=== PATIENT | male | born 1970 | race Caucasian/White ===

== ENCOUNTER 2023-01-01 18:30 | Emergency (ER) | payer OTHER ==
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
--- NOTE | 2023-01-01 22:08 | XR ---
EXAMINATION TYPE: XR cervical spine limited DATE OF EXAM: 01/01/2023 9:10 PM INDICATION: Patient age:Male; 52 years old; Reason for study: neck pain; [facility]. COMPARISON: None. TECHNIQUE: 3 views of the skull. FINDINGS: No evidence to suggest radiopaque foreign body. Soft tissues and osseous structures are within norm al limits. Moderate degenerative changes of the cervical spine. These changes are most pronounced wi thin the lower cervical spine. IMPRESSION: Moderate osteoarthritis of the cervical spine.
[2023-01-01] MEDS ORDERED: KETOROLAC 15 MG/ML 1 ML VIAL IVP STA (23:06)
[2023-01-01] MEDS ORDERED: LIDOCAINE 5% PATCH TOPICAL STA (23:07)
[2023-01-01] MEDS ORDERED: KETOROLAC 15 MG/ML 1 ML VIAL IM STA (23:24)
--- NOTE | 2023-01-01 23:43 | CT ---
EXAM: CT Cervical Spine Without Intravenous Contrast CLINICAL HISTORY: ITS.REASON CT Reason: numbness in extremities TECHNIQUE: Axial computed tomography images of the cervical spine without intravenous contrast. CTDI is 6 mGy and DLP is 491 mGy-cm. This CT exam was performed using one or more of the following dose reduction techniques: automated exposure control, adjustment of the mA and/or kV according to patient size, and/or use of iterative reconstruction technique. COMPARISON: C-spine radiographs 01/01/23 FINDINGS: Vertebrae: Mild reversal of the normal cervical lordosis. No acute fracture or traumatic malalignment. Discs/spinal canal/neural foramina: Disc height loss, osteophytes, uncovertebral spurs, and facet arthropathy. Multilevel foraminal narrowing. Spinal stenosis is moderate at C5-C6 and mild at C6-C7. Soft tissues: No significant abnormality. IMPRESSION: 1. No acute fracture or traumatic malalignment. 2. Degenerative changes worst at C5-C6 where there is bilateral neural foraminal stenosis and at least moderate spinal stenosis. MRI may be considered for further characterization. EXAM: CT Thoracic Spine Without Intravenous Contrast CLINICAL HISTORY: ITS.REASON CT Reason: numbness in extremities TECHNIQUE: Axial computed tomography images of the thoracic spine without intravenous contrast. CTDI is 6 mGy and DLP is 491 mGy-cm. This CT exam was performed using one or more of the following dose reduction techniques: automated exposure control, adjustment of the mA and/or kV according to patient size, and/or use of iterative reconstruction technique. COMPARISON: No relevant prior studies available. FINDINGS: Vertebrae: No acute fracture or malalignment. Discs/spinal canal/neural foramina: Mild degenerative changes. No significant osseous spinal stenosis. Soft tissues: No significant abnormality. Vasculature: Mild aneurysmal dilatation of the ascending thoracic aorta which measures up to 4.1 cm. Aortic atherosclerosis. IMPRESSION: 1. No acute fracture or malalignment. 2. There is a 4.1 cm ascending thoracic aortic aneurysm. EXAM: CT Lumbar Spine Without Intravenous Contrast CLINICAL HISTORY: ITS.REASON CT Reason: numbness in extremities TECHNIQUE: Axial computed tomography images of the lumbar spine without intravenous contrast. CTDI is 6 mGy and DLP is 491 mGy-cm. This CT exam was performed using one or more of the following dose reduction techniques: automated exposure control, adjustment of the mA and/or kV according to patient size, and/or use of iterative reconstruction technique. COMPARISON: No relevant prior studies available. FINDINGS: Vertebrae: No acute fracture or malalignment. Discs/spinal canal/neural foramina: Mild degenerative changes. No significant osseous spinal stenosis. Soft tissues: No significant abnormality. Vasculature: Aortic atherosclerosis. No abdominal aortic aneurysm. IMPRESSION: No acute fracture or malalignment.
[2023-01-01] MEDS ORDERED: CYCLOBENZAPRINE 10 MG TAB PO STA (23:57)
[2023-01-02 00:23] VITALS: BP 129/78; PULSE 76; RESP 18; TEMP 98.1
== END 2023-01-02 00:23 | disposition home or self-care (01) ==
LOC: EC 18:30
DX: M48.02 Spinal stenosis, cervical region (principal); M48.061 Spinal stenosis, lumbar region without neurogenic claudication; M47.812 Spondylosis without myelopathy or radiculopathy, cervical region; I71.21 Aneurysm of the ascending aorta, without rupture; F14.10 Cocaine abuse, uncomplicated
CPT/HCPCS: 72040; 72128; 72125; 72131; 99284; 96372; J1885